=== PATIENT | female | born 1940 | race Caucasian/White ===

== ENCOUNTER → 2018-07-20 | Outpatient (REF) | payer MEDICARE ==
[~2018-07-20] MED LIST: ADULT ASA81 M1 OR; AVELOX400 MG OR; BENICAR20 MG OR; CALCIUM500 M1 OR; CELEBREX200 MG OR; CHERATUSSIN OR; DOXYCYC MONO100 MG OR; FLEXERIL OR; LISINOPRIL10 MG OR; MAGNESIUM200 MG OR; MULTI VITAMN OR; OMEPRAZOLE20 MG OR; VICODIN OR
[2018-07-20 10:34] LABS: HEMATOCRIT 37.7 % (37.0-47.0); IMMATURE GRANULOCYTES 0.2 % (0.0-5.0); MEAN CELL VOLUME 95.4 fL CALC (80.0-100.0); MEAN CORPUSCULAR HGB 30.4 pG CALC (26.0-32.0); MEAN CORPUSCULAR HGB CONC 31.8 g/L CALC (32.0-36.0); NEUT# 2.16 thou/uL (2.00-7.15); RED BLOOD COUNT 3.95 mill/uL (4.20-5.60); RED CELL DISTRI WIDTH 12.3 % (11.5-15.5)
[2018-07-20 11:03] LABS: ALBUMIN 4.2 g/dL (3.2-5.0); ALKALINE PHOSPHATASE 83 u/l (38-126); ANION GAP 14 (6-22 (CALC)); BILIRUBIN, TOTAL 0.7 mg/dL (0.0-1.4); BUN 23 mg/dL (8-23); BUN/CREATININE RATIO 27 (12-20 (CALC)); CALCULATED LDLCHOLESTEROL 100 mg/dL (62-129 (CALC)); CARBON DIOXIDE 30 mmol/l (22-30); CHLORIDE 103 mmol/l (95-108); CHOLESTEROL HDL RATIO 2.4 (<4.4 (CALC)); CREATININE 0.8 mg/dL (0.5-1.0); GFR > 60 ML/MIN (>=60 (CALC)); GFR FOR AFR.AMER. > 60 ML/MIN (>=60 (CALC)); HDL CHOLESTEROL 80 mg/dL (>=40); POTASSIUM 4.7 mmol/l (3.5-5.1); SGOT/AST 27 u/l (9-36); SODIUM 142 mmol/l (137-146); TOTAL CHOLESTEROL 194 mg/dl (0-199); TOTAL TRIGLYCERIDES 69 mg/dl (30-149); VLDL CHOLESTROL 14 mg/dl (0-48 (CALC))
[2018-07-20 11:31] LABS: TSH, 3RD GENERATION 1.49 uIU/mL (0.47 - 4.68)
== END | disposition home or self-care (01) ==
LOC: LAB 09:55
PROVIDERS: ATTEND Internal Medicine
DX: I10 Essential (primary) hypertension (principal); K21.9 Gastro-esophageal reflux disease without esophagitis

== ENCOUNTER 2021-06-01 20:57 | Observation (INO) | payer MEDICARE ==
[~2021-06-01] VITALS: Ht 175.3 cm; Wt 85.0 kg
--- NOTE | 2021-06-01 21:03 | NUR ---
BY WC TO ROOM
[2021-06-01 21:47] LABS: HEMATOCRIT 30.7 % (37.0-47.0); HEMOGLOBIN 9.5 g/dl (12.0-16.0); IMMATURE GRANULOCYTES 0.2 % (0.0-5.0); MEAN CELL VOLUME 95.9 fL CALC (80.0-100.0); MEAN CORPUSCULAR HGB 29.7 pG CALC (26.0-32.0); MEAN CORPUSCULAR HGB CONC 30.9 g/dL CAL (32.0-36.0); NEUT# 3.51 thou/uL (2.00-7.15); RED BLOOD COUNT 3.2 mill/uL (4.20-5.60); RED CELL DISTRI WIDTH 13.6 % (11.5-15.5)
[2021-06-01] MEDS ORDERED: NEURONTIN100 MG PO (21:54)
[2021-06-01] MEDS ORDERED: ALLEGRA ALLERGY60 MG PO (21:56)
[2021-06-01] MEDS ORDERED: [UNRECOGNIZED DRUG - OTHER] OU (21:58)
[2021-06-01 22:00] LABS: ALBUMIN 4.1 g/dL (3.2-5.0); BILIRUBIN, TOTAL 0.4 mg/dL (0.0-1.4); CREATININE 1.3 mg/dL (0.5-1.0); POTASSIUM 4.3 mmol/l (3.5-5.1); TOTAL PROTEIN 7.5 g/dL (6.3-8.2)
--- NOTE | 2021-06-01 22:41 | NUR ---
W/P/D SKIN NO PAIN NO SOB NO SWEATS OR NAUSEA.UP TO BSC TO VOID SPEC TO LAB
[2021-06-01 23:03] LABS: URINE BILIRUBIN - DIPSTICK NEGATIVE (NEGATIVE); URINE BLOOD DIPSTICK TRACE-INTACT (NEGATIVE); URINE COLOR YELLOW; URINE GLUCOSE - DIPSTICK NEGATIVE (NEGATIVE); URINE KETONE NEGATIVE (NEGATIVE); URINE LEUK ESTERASE NEGATIVE (NEGATIVE); URINE PROTEIN - DIPSTICK NEGATIVE (NEG-TRACE); URINE SPECIFIC GRAVITY 1.015; URINE UROBILINOGEN - DIPSTICK 0.2 E.U./dL (0.2)
[2021-06-01 23:04] LABS: URINE NITRITE - DIPSTICK NEGATIVE (Negative)
--- NOTE | 2021-06-01 23:40 | NUR ---
SR NO ECTOPY NO ST T CHANGES W/P/D SKIN NO SOB
--- NOTE | 2021-06-02 00:20 | NUR ---
W/P/D SKIN NO ST T CHANGES NO CP OR SOB.
--- NOTE | 2021-06-02 01:30 | NUR ---
PHONE REPORRT TO NURSE SHIVAM ON MS
--- NOTE | 2021-06-02 01:35 | NUR ---
PT IS PAINFREE W/P/D [id number] SR NO ECTOPY NO ST T CHANGES PT TRANSPORTED VIA WC ON TELE IN STABLE CONDITION
[2021-06-02 01:45] VITALS: BP 129/61
[2021-06-02 04:00] VITALS: BP 130/61
--- NOTE | 2021-06-02 04:00 | NUR ---
PATIENT AMBULATED TO RESTROOM AND BACK WITH SUPERVISION. DENIES ANY PAIN OR DISCOMFORT. REQUESTED ANOTHER BLANKET. WARM BLANKET PROVIDED. CALL LIGHT AND BELONGINGS REMAIN IN REACH.
[2021-06-02 06:11] LABS: HEMATOCRIT 28.1 % (37.0-47.0); HEMOGLOBIN 8.6 g/dl (12.0-16.0); MEAN CELL VOLUME 96.9 fL CALC (80.0-100.0); MEAN CORPUSCULAR HGB 29.7 pG CALC (26.0-32.0); MEAN CORPUSCULAR HGB CONC 30.6 g/dL CAL (32.0-36.0); RED BLOOD COUNT 2.9 mill/uL (4.20-5.60); RED CELL DISTRI WIDTH 13.5 % (11.5-15.5)
[2021-06-02 06:29] LABS: ANION GAP 8 (6-22 (CALC)); BUN 23 mg/dL (8-23); BUN/CREATININE RATIO 25 (12-20 (CALC)); CALCULATED LDLCHOLESTEROL 85 mg/dL (62-129 (CALC)); CARBON DIOXIDE 26 mmol/l (22-30); CHLORIDE 109 mmol/l (95-108); CHOLESTEROL HDL RATIO 2.7 (<4.4 (CALC)); CREATININE 0.9 mg/dL (0.5-1.0); GFR 60 ML/MIN (>=60 (CALC)); GFR FOR AFR.AMER. > 60 ML/MIN (>=60 (CALC)); HDL CHOLESTEROL 59 mg/dL (>=40); MAGNESIUM 1.9 mg/dL (1.6-2.3); POTASSIUM 4.1 mmol/l (3.5-5.1); SODIUM 139 mmol/l (137-146); TOTAL CHOLESTEROL 159 mg/dl (0-199); TOTAL TRIGLYCERIDES 72 mg/dl (30-149); VLDL CHOLESTROL 14 mg/dl (0-48 (CALC))
--- NOTE | 2021-06-02 08:00 | NUR ---
SHIFT CHANGE REPORT, PT AWAKE ALERT AND ORIENTED, DENIES DISCOMFORT OF ANY SORT, TELE MONITOR IN PLACE, CALL HICKS IN REACH AND BED LOCKED IN LOWEST POSITION.
[2021-06-02 08:41] VITALS: BP 105/57
[2021-06-02] MEDS ORDERED: ZITHROMAX250 MG PO (09:41)
[2021-06-02] MEDS ORDERED: OMNICEF300 M1 PO (09:42)
--- NOTE | 2021-06-02 12:53 | NUR ---
Discharge instructions given. Patient verbalizes understanding of same. Discharged in good condition via Wheelchair to Home with significant other. All belongings sent with pt.
== END 2021-06-02 12:53 | disposition home or self-care (01) ==
LOC: ED 20:57 → ED-I 23:07 → MS2 06-02 00:51 → ED 06-02 00:51 → MS2 06-02 12:53
PROVIDERS: Emergency Medicine; ADMIT Hospitalist; ATTEND Hospitalist
DX: R07.9 Chest pain, unspecified (principal); J18.9 Pneumonia, unspecified organism; I10 Essential (primary) hypertension; M41.9 Scoliosis, unspecified; Z20.822 Contact with and (suspected) exposure to COVID-19
CPT/HCPCS: G0378